=== PATIENT | male | born 1965 | race Caucasian/White ===

== ENCOUNTER 2019-03-12 16:14 | Emergency (ER) | payer SELFPAY ==
[~2019-03-12] VITALS: Ht 165.1 cm; Wt 85.4 kg
[2019-03-12] MEDS ORDERED: LIDOCAINE 1%/EPI 1:100,000 10 ML VIAL IJ ONE (21:15)
[2019-03-12] MEDS ORDERED: LIDOCAINE HCL/EPINEPHRINE 1%-EPI 1:100,000 20 ML VIAL INFIL NR (21:22)
[2019-03-12 22:40] VITALS: BP 145/91
== END 2019-03-12 22:46 | disposition home or self-care (01) ==
LOC: ER 16:14
DX: K64.8 Other hemorrhoids (principal); Z90.49 Acquired absence of other specified parts of digestive tract; Z98.890 Other specified postprocedural states
CPT/HCPCS: 99282; J3490